=== PATIENT | female | born 1960 | race Caucasian/White ===

== ENCOUNTER 2022-09-17 15:15 | Outpatient (RCR) | payer BC, SELFPAY | END 2022-12-29 23:59 | disposition home or self-care (01) | LOC: CCIC 15:15 | PROVIDERS: PCP Physician Assistant; Visit Provider Internal Medicine Hematology & Oncology | DX: A04.8 Other specified bacterial intestinal infections (principal) | CPT/HCPCS: 99202; 99205; 99212; 99213; 99214 ==

== ENCOUNTER 2023-05-10 19:32 | Emergency (ER) | payer BC, SELFPAY ==
[2023-05-10] VITALS (17 sets, daily range): BP systolic 89–134; BP diastolic 55–79; PULSE 75–162; RESP 16–18; TEMP 36.4–37; O2SAT 90–98; BMI 28.3
--- NOTE | 2023-05-10 19:57 | CRLHL7_ITS ---
For Patients: As a result of the Century Cures Act, medical imaging exams and procedure reports are released immediately into your electronic medical record. You may view this report before your referring provider. If you have questions, please contact your health care provider. INDICATION: Chest pain.CHEST AND JAW PAIN TECHNIQUE: Chest 2 views. COMPARISON: June 2018. FINDINGS: Lungs: Normal lung volume. No consolidation. The tracheobronchial tree and hilar structures are unremarkable. Pleura: No pleural effusion or pneumothorax. Heart and Mediastinum: Normal heart size. The great vessels of the thorax are unremarkable. Bones: No acute displaced osseous process. IMPRESSION: No consolidation. Dictated by Bret Walsh MD @ 05/10/2023 9:36:17 PM (Electronically Signed)
[2023-05-10] MEDS: METOPROLOL TARTRATE 1 MG/ML inj 5 MG IVP (19:59)
[2023-05-10 20:16] LABS: Basophils Absolute Auto 0.02 K/uL (0.00-0.30); Basophils Percent Auto 0.3 % (0.0-3.0); Eosinophils Absolute Auto 0.19 K/uL (0.00-0.50); Eosinophils Percent Auto 2.5 % (0.0-7.0); Hematocrit 37.5 % (33.0-51.0); Hemoglobin* 12.3 gm/dL (12.0-16.0); Immature Granulocytes Abs Auto 0.01 K/uL (0.00-0.30); Immature Granulocytes Pct Auto 0.1 %; Lymphocytes Percent Auto 16.9 % (20-44); Mean Corpuscular HGB Conc 33 gm/dL (32-36); Mean Corpuscular Hemoglobin 31 pg (26-34); Mean Corpuscular Volume 94 fL (80-100); Monocytes Percent Auto 8.4 % (0.0-11.0); Neutrophils Percent Auto 71.8 % (42.0-72.0); Platelet Count* 242 K/uL (140-440); RDW Coefficient of Variation % 12.4 % (11.5-15.5); White Blood Count* 7.52 K/uL (4.50-11.00)
[2023-05-10 20:17] LABS: Albumin* 4.4 g/dL (3.3-5.0); Chloride* 106 mmol/L (96-114); Potassium* 3.2 mmol/L (3.6-5.1); Sodium* 140 mmol/L (135-149)
[2023-05-10 20:19] LABS: Creatinine* 0.7 mg/dL (0.5-1.5); Est. Creatinine Clearance* 48.87; Estimated Glomerular Filt Rate 98 ml/min; Slide Review Reflex No
[2023-05-10 20:20] LABS: Alanine Aminotransferase* 28 U/L (4-35); Alkaline Phosphatase* 93 U/L (40-150); Aspartate Amino Transferase* 34 U/L (12-35); Bilirubin Total* 0.6 mg/dL (0.1-1.5); Blood Urea Nitrogen* 26 mg/dL (7-30); Carbon Dioxide* 23 mmol/L (20-32); Glucose* 99 mg/dL (60-115); Total Protein* 7.3 g/dL (6.0-8.3)
[2023-05-10 20:21] LABS: Calcium* 9.2 mg/dL (8.4-10.6)
--- NOTE | 2023-05-10 20:42 | ED.GENADULT ---
HPI - General Adult General Date Seen: 05/10/23 Chief complaint: Chest Pain Stated complaint: Chest and jaw pain Time Seen by Provider: 05/10/23 19:32 Source: patient Mode of arrival: ambulatory Limitations: no limitations History of Present Illness HPI narrative: Patient is a 63-year-old female presenting emergency department for palpitations. She states she has a history of an irregular heartbeat in the past but does not know what it was but does state she knows it was not AFib but states it was fast. She states while she was working on her mother's house today she started to feel palpitations and worsening shortness of breath. She took her home metoprolol which she says helped his symptoms slightly but then there were not improving so decided come the emergency department. She states this all happened about 90 minutes prior to arrival to the emergency department. Denies abdominal pain, headache, vision changes. Does states she is feeling lightheaded but is feeling better from that standpoint while lying in bed. She does admit she has been under lot of stress lately. Denies fevers, chills, diarrhea constipation, vision changes. Related Data Home Medications Medication Instructions Recorded Confirmed albuterol sulfate 2.5 mg/3 mL 2.5 mg inhalation Q6-8H PRN 07/02/22 09/17/22 (0.083 %) solution for nebulization albuterol sulfate 90 mcg/actuation inhalation 07/02/22 09/17/22 aerosol inhaler atorvastatin 40 mg tablet 40 mg PO QPM 07/02/22 09/17/22 docusate sodium 50 mg capsule 50 mg PO QDAY 07/02/22 09/17/22 (Stool Softener) fexofenadine-pseudoephedrine ER tab PO 07/02/22 09/17/22 180 mg-240 mg tablet,ext.release 24 hr (Carmel-D 24 Hour) ipratropium 0.5 mg-albuterol 3 mg ml inhalation 07/02/22 09/17/22 (2.5 mg base)/3 mL nebulization soln naproxen sodium 220 mg capsule 660 mg PO QAM PRN 07/02/22 09/17/22 (Aleve) zafirlukast 20 mg tablet 40 mg PO QAM 07/02/22 09/17/22 aspirin 81 mg tablet,delayed 81 mg PO QDAY 09/02/22 09/17/22 release beclomethasone dipropionate 40 1 inh inhalation 09/02/22 09/17/22 mcg/actuation HFA breath activated aerosol (Qvar RediHaler) cyclosporine 0.05 % eye drops in a drp ophthalmic (eye) 09/02/22 09/17/22 dropperette ondansetron HCl 4 mg tablet mg PO 09/02/22 09/17/22 metoprolol 05/10/23 Previous Rx's Medication Instructions Recorded omeprazole 20 mg capsule,delayed 20 mg PO BID #60 caps 07/02/22 release ondansetron 4 mg disintegrating 4 mg PO Q8H #60 tabs 09/17/22 tablet Allergies Allergy/AdvReac Type Severity Reaction Status Date / Time fluticasone Allergy GI Verified 09/17/22 15:22 [From Advair Diskus] salmeterol Allergy GI Verified 09/17/22 15:22 [From Advair Diskus] Formoterol AdvReac Intermediate GI upset Uncoded 09/17/22 15:22 Mometasone AdvReac Intermediate GI upset Uncoded 09/17/22 15:22 advair AdvReac Mild Bloating Uncoded 07/02/22 09:09 Review of Systems Status of ROS: Reports: 10 or more systems reviewed and unremarkable except as noted in History and below PFSH [facility] Medical History (Updated 05/10/23 @ 23:15 by Jesus Lockett, ) COPD (chronic obstructive pulmonary disease) (05/28/13) ?J44.9 - Chronic obstructive pulmonary disease, unspecified (ICD-10) Asthma (05/28/13) ?J45.909 - Unspecified asthma, uncomplicated (ICD-10) Cervical cancer ?C53.9 - Malignant neoplasm of cervix uteri, unspecified (ICD-10) Surgical History (Updated 09/02/22 @ 15:15 by Leela Verdugo ~ RN, RN) H/O: hysterectomy ?Z90.710 - Acquired absence of both cervix and uterus (ICD-10) Social History Smoking Status: Former smoker Do you use any of these nicotine containing products: None How often do you have a drink containing alcohol: monthly or less AUDIT-C Alcohol total score: 1 Non-prescribed substance use: denies use Exam Narrative: Exam Narrative: Const: Well-nourished, Well-developed, in mild distress Eyes: PERRL, no conjunctival injection, and symmetrical lids ENMT: Atraumatic external nose and ears. Moist mucous membranes. Neck: Symmetric, trachea midline, No thyromegaly. CVS: Tachycardia, No murmurs or gallops. Peripheral pulses 2+ and equal in all extremities RESP: Unlabored respiratory effort. Clear to auscultation bilaterally. GI: Nontender/Nondistended, No rebound or guarding. MSK:Extremities w/o deformity, Normal Active ROM Skin: Warm, Dry. No rashes or lesions. Neuro: Normal Muscle tone, No focal neurological deficits. Psych: Awake, Alert, & Oriented x3. Appropriate mood and affect. Const: Vital Signs, click to edit/add: Vital Signs - 24 hr 05/10/23 19:43 05/10/23 19:55 05/10/23 20:02 Temperature 98.6 F Pulse Rate 160 H 158 H Pulse Rate [Pulse Oximeter] 162 H Respiratory Rate 18 18 18 Blood Pressure 133/55 L 89/68 L Blood Pressure [Ri ght Upper Arm] 126/79 Pulse Oximetry 94 94 94 Oxygen Delivery Me thod Room Air 05/10/23 20:03 05/10/23 20:17 05/10/23 20:32 Temperature Pulse Rate 158 H 90 86 Pulse Rate [Pulse Oximeter] Respiratory Rate 18 18 18 Blood Pressure 109/56 L 105/57 L 110/59 L Blood Pressure [Ri ght Upper Arm] Pulse Oximetry 93 90 94 Oxygen Delivery Me thod 05/10/23 20:47 05/10/23 21:02 05/10/23 21:17 Temperature 97.5 F L Pulse Rate 87 82 82 Pulse Rate [Pulse Oximeter] Respiratory Rate 16 18 18 Blood Pressure 113/63 121/67 109/76 Blood Pressure [Ri ght Upper Arm] Pulse Oximetry 95 95 95 Oxygen Delivery Me thod 05/10/23 21:31 05/10/23 21:47 05/10/23 22:02 Temperature Pulse Rate 80 78 77 Pulse Rate [Pulse Oximeter] Respiratory Rate 18 16 Blood Pressure 119/74 118/72 115/65 Blood Pressure [Ri ght Upper Arm] Pulse Oximetry 95 93 93 Oxygen Delivery Me thod 05/10/23 22:17 05/10/23 22:32 Temperature Pulse Rate 75 77 Pulse Rate [Pulse Oximeter] Respiratory Rate 16 18 Blood Pressure 106/69 123/78 Blood Pressure [Ri ght Upper Arm] Pulse Oximetry 95 95 Oxygen Delivery Me thod Course Vital Signs Vital signs: Initial Vital Signs Temperature 98.6 F 05/10/23 19:43 Temperature Source Temporal Artery Scan 05/10/23 19:43 Pulse Rate 162 H 05/10/23 19:43 Respiratory Rate 18 05/10/23 19:43 Blood Pressure 126/79 05/10/23 19:43 Blood Pressure Mean 94 05/10/23 19:43 Blood Pressure Position Supine 05/10/23 19:43 Pulse Oximetry 94 05/10/23 19:43 Oxygen Delivery Method Room Air 05/10/23 19:43 Vital Signs Temperature 98.6 F 05/10/23 19:43 Pulse Rate 162 H 05/10/23 19:43 Respiratory Rate 18 05/10/23 19:43 Blood Pressure 126/79 05/10/23 19:43 Pulse Oximetry 94 05/10/23 19:43 Oxygen Delivery Method Room Air 05/10/23 19:43 Temperature 97.5 F L 05/10/23 21:02 Pulse Rate 76 05/10/23 23:17 Respiratory Rate 18 05/10/23 23:17 Blood Pressure 134/67 05/10/23 23:17 Pulse Oximetry 93 05/10/23 23:17 Oxygen Delivery Method Room Air 05/10/23 19:43 Medical Decision Making MDM Narrative Medical decision making narrative: Patient 63-year-old female presented emergency department for palpitation and shortness of breath. Patient states symptoms started 1 hour prior to arrival to the emergency department. She says she has been under lot of stress but has had symptoms like this before and has been told she has and intermittently fast heart rate but states this is not AFib. She took a metoprolol which she said helped some for the palpitations. She states when the palpitations started shortness of breath got worse. She is having some mild chest pain. Cardiac workup was ordered on this patient. When she 1st arrived heart rate was 161 an EKG showed a sinus tachycardia, normal axis, normal intervals, there does appear to be depressions of the ST segment in the lateral leads likely from the sinus tachycardia. She is given 5 mg of Lopressor. Quickly after this her heart rate came down to the 90s and is now in the 70s. She states she feels much better at this time. Repeat EKG just prior to discharge shows a normal size rhythm with a rate of 75 beats per minute, normal intervals, normal axis, no ST or T-wave abnormalities. CBC returned showing no concerning abnormalities. CMP shows no concerning abnormalities. Troponin is within normal limits. We did do repeat troponin 3 hours later and it was still less than 0.01. We did replete her potassium of 3.2. This is unlikely because of his symptoms. Unclear why she became tachycardic with this relatively small amount of Lopressor to resolve her symptoms and she is feeling better at this time. Due to this I feel she is safe for discharge. I gave her strict return precautions and she is agreeable to this plan. I informed her she needs to have her primary care provider surgery up with Cardiology. She is agreeable to this also. Lab Data Labs: Lab Results 05/10/23 05/10/23 Range/Units 19:45 21:20 WBC 7.52 (4.50-11.00) K/uL RBC 4.00 (4.00-5.20) m/uL Hgb 12.3 (12.0-16.0) gm/dL Hct 37.5 (33.0-51.0) % MCV 94 (80-100) fL MCH 31 (26-34) pg MCHC 33 (32-36) gm/dL RDW Coeff of Kiana 12.4 (11.5-15.5) % Plt Count 242 (140-440) K/uL Neut % (Auto) 71.8 (42.0-72.0) % Lymph % (Auto) 16.9 L (20-44) % Barnes % (Auto) 8.4 (0.0-11.0) % Eos % (Auto) 2.5 (0.0-7.0) % Baso % (Auto) 0.3 (0.0-3.0) % Neut # (Auto) 5.40 (1.7-7.0) K/uL Lymph # (Auto) 1.30 (0.90-2.90) K/uL Barnes # (Auto) 0.60 (0.00-0.90) K/UL Eos # (Auto) 0.19 (0.00-0.50) K/uL Baso # (Auto) 0.02 (0.00-0.30) K/uL Abs Immat Gran (auto) 0.01 (0.00-0.30) K/uL Imm/Tot Granulo (auto) 0.1 % Sodium 140 (135-149) mmol/L Potassium 3.2 L (3.6-5.1) mmol/L Chloride 106 (96-114) mmol/L Carbon Dioxide 23 (20-32) mmol/L BUN 26 (7-30) mg/dL Creatinine 0.7 (0.5-1.5) mg/dL Estimated Creat Clear 48.87 Estimated GFR 98 ml/min Glucose 99 (60-115) mg/dL Calcium 9.2 (8.4-10.6) mg/dL Total Bilirubin 0.6 (0.1-1.5) mg/dL AST 34 (12-35) U/L ALT 28 (4-35) U/L Alkaline Phosphatase 93 (40-150) U/L Troponin I < 0.01 L < 0.01 L (0.01-0.04) ng/mL Total Protein 7.3 (6.0-8.3) g/dL Albumin 4.4 (3.3-5.0) g/dL Discharge Plan Discharge Clinical Impression: Sinus tachycardia Patient Disposition: Home, Self-Care Condition: Stable Instructions: Atrial Tachycardia (DC) Additional Instructions: Follow-up with the primary care provider and speaking about seen a occupational health specialist for your tachycardia. If symptoms worsen or return please return to the emergency department immediately. Prescriptions: No Action ondansetron 4 mg tablet,disintegrating 4 mg PO Q8H Qty: 60 0RF albuterol sulfate 90 mcg/actuation HFA aerosol inhaler inhalation Patient Comments: INHALE ONE OR TWO PUFFS BY MOUTH EVERY FOUR HOURS NEEDED FOR SHORTNESS OF BREATH atorvastatin 40 mg tablet 40 mg PO QPM Patient Comments: TAKE ONE TABLET BY MOUTH ONE TIME DAILY AT BEDTIME zafirlukast 20 mg tablet 40 mg PO QAM Patient Comments: TAKE ONE TABLET BY MOUTH TWICE A DAY WITH MEALS albuterol sulfate 2.5 mg /3 mL (0.083 %) solution for nebulization 2.5 mg inhalation Q6-8H PRN Patient Comments: Inhale 3 mL (2.5 mg) via a nebulizer every 4 hours if needed for Shortness of Breath or Wheezing fexofenadine-pseudoephedrine [Carmel-D 24 Hour] 180-240 mg tablet extended release 24 hr PO Patient Comments: TAKE ONE TABLET BY MOUTH ONE TIME DAILY ipratropium-albuterol 0.5 mg-3 mg(2.5 mg base)/3 mL solution for nebulization inhalation Patient Comments: Inhale 3 mL via a nebulizer every 6 hours if needed. USE FIRST CHOICE FOR SHORTNESS OF BREATH. naproxen sodium [Aleve] 220 mg capsule 660 mg PO QAM PRN Stool Softener 50 mg capsule 50 mg PO QDAY omeprazole 20 mg capsule,delayed release(DR/EC) 20 mg PO BID Qty: 60 0RF aspirin 81 mg tablet,delayed release (DR/EC) 81 mg PO QDAY Qvar RediHaler 40 mcg/actuation HFA aerosol breath activated 1 inh inhalation Patient Comments: INHALE 1 PUFF BY MOUTH TWO TIMES DAILY. ondansetron HCl 4 mg tablet PO Patient Comments: Take 1 tablet by mouth one hour before daily treatment and every 8 hours as needed for nausea; may increase to two tablets before treatment cyclosporine 0.05 % dropperette ophthalmic (eye) Patient Comments: instill 1 drop into both eyes twice daily. metoprolol Follow Up/Referrals: Abril Gloria DO [Primary Care Provider] - Stand Alone Forms: [employer] Info Instructions
[2023-05-10 20:43] LABS: Troponin I* < 0.01 ng/mL (0.01-0.04)
[2023-05-10 22:55] LABS: Troponin I* < 0.01 ng/mL (0.01-0.04)
[2023-05-10] MEDS: POTASSIUM CHLORIDE 10 MEQ CAPSULE ER 40 MEQ PO (23:08)
== END 2023-05-10 23:38 | disposition home or self-care (01) ==
PROVIDERS: Emergency Provider Student in an Organized Health Care Education/Training Program; PCP Family Medicine
DX: R00.0 Tachycardia, unspecified (principal)
CPT/HCPCS: 36415; 71046; 80053; 84484; 85025; 93005; 96374; 99283; 99284; 99285; A9270

== ENCOUNTER 2023-09-18 08:54 | Outpatient (CLI) | payer BC, SELFPAY ==
--- NOTE | 2023-09-18 09:15 | CRLHL7_ITS ---
For Patients: As a result of the Century Cures Act, medical imaging exams and procedure reports are released immediately into your electronic medical record. You may view this report before your referring provider. If you have questions, please contact your health care provider. INDICATION: Neck pain. Cervicogenic headaches. COMPARISON: None available. TECHNIQUE: Sagittal T1, T2, and STIR sequences. Axial T2/gradient sequences. FINDINGS: Straightening of the normal cervical lordosis which may be secondary to muscle spasm patient positioning. Degenerative grade 1 anterolisthesis is C3 and C4 measures approximately 3 mm. Trace degenerative retrolisthesis of C4 on C5 and C5 on C6. Normal facet alignment. No fractures. No vertebral body loss of height. Normal cord signal. No intradural mass or lesion. C1-2: No spinal canal narrowing. C2-3: No narrowing of spinal canal. Mild narrowing of the left neural foramen. No narrowing of the right neural foramen. C3-4: Grade 1 anterolisthesis. Disc degeneration. Posterior disc bulging disc osteophyte complex. Mild narrowing of spinal canal. Mild right and moderate left neural foraminal narrowing. C4-5: Disc generation and posterior disc bulging disc osteophyte complex. Mild narrowing of spinal canal. Moderate right and mild left neural foraminal narrowing. C5-6: Disc generation broad-based disc osteophyte complex. Mild narrowing of the spinal canal. Moderate narrowing of bilateral foramina. C6-7: No spinal canal or neural foraminal narrowing. C7-T1: No spinal canal or neural foraminal narrowing. No spinal canal or neural foraminal narrowing in the visualized upper thoracic spine. IMPRESSION: 1. Degenerative grade 1 anterolisthesis of C3 on C4. Trace retrolisthesis of C4 on C5 and C5 on C6. 2. Otherwise, normal facet alignment. No fractures. 3. Normal cord signal. No intradural mass or vision. 4. At C3-4, mild right and moderate left neural foraminal narrowing. 5. At C4-5, moderate right and mild left neural foraminal narrowing. 6. At C5-6, moderate narrowing of the bilateral neural foramina Dictated by Berhane Dowell MD @ 09/19/2023 10:26:54 AM (Electronically Signed)
== END 2023-09-18 08:55 | disposition home or self-care (01) ==
PROVIDERS: PCP Family Medicine; Visit Provider Family Medicine
DX: M54.2 Cervicalgia (principal); M50.21 Other cervical disc displacement, high cervical region; M50.222 Other cervical disc displacement at C5-C6 level; G44.86 Cervicogenic headache; M43.12 Spondylolisthesis, cervical region; M50.30 Other cervical disc degeneration, unspecified cervical region
CPT/HCPCS: 72141

== ENCOUNTER 2023-09-29 17:12 | Emergency (ER) | payer BC, SELFPAY ==
[2023-09-29] VITALS (10 sets, daily range): BP systolic 97–114; BP diastolic 44–63; PULSE 78–101; RESP 20; TEMP 36.3; O2SAT 93–96; BMI 29.2
--- NOTE | 2023-09-29 18:12 | ED_ITS ---
HPI - General Adult General Chief complaint: Arrhythmia/Palpitations Stated complaint: elevated heart rate Time Seen by Provider: 09/29/23 17:50 Source: patient Mode of arrival: ambulatory Limitations: no limitations History of Present Illness HPI narrative: 63-year-old female presenting today with concerns of palpitations. She states that about an hour ago she was having dinner when her heart began racing. She felt short of breath, central substernal chest pain and pain going into her left jaw. She states that she then took 25 mg of metoprolol and now she feels better. Patient states that this has occurred in the past once this summer. She presented here in what appeared to be sinus tachycardia that resolved with metoprolol. Unfortunately, she has not followed up with her physician or Cardiology since then. She denies ever having heart monitor. She denies intermittent palpitations since the last episode. Denies any recent illness, has been eating and drinking well. Normal sleep. She denies any recent alcohol use. She does not smoke. Related Data Home Medications Medication Instructions Recorded Confirmed albuterol sulfate 2.5 mg/3 mL 2.5 mg inhalation Q6-8H PRN 07/02/22 09/17/22 (0.083 %) solution for nebulization albuterol sulfate 90 mcg/actuation inhalation 07/02/22 09/17/22 aerosol inhaler atorvastatin 40 mg tablet 40 mg PO QPM 07/02/22 09/17/22 docusate sodium 50 mg capsule 50 mg PO QDAY 07/02/22 09/17/22 (Stool Softener) fexofenadine-pseudoephedrine ER tab PO 07/02/22 09/17/22 180 mg-240 mg tablet,ext.release 24 hr (Carmel-D 24 Hour) ipratropium 0.5 mg-albuterol 3 mg ml inhalation 07/02/22 09/17/22 (2.5 mg base)/3 mL nebulization soln naproxen sodium 220 mg capsule 660 mg PO QAM PRN 07/02/22 09/17/22 (Aleve) zafirlukast 20 mg tablet 40 mg PO QAM 07/02/22 09/17/22 aspirin 81 mg tablet,delayed 81 mg PO QDAY 09/02/22 09/17/22 release beclomethasone dipropionate 40 1 inh inhalation 09/02/22 09/17/22 mcg/actuation HFA breath activated aerosol (Qvar RediHaler) cyclosporine 0.05 % eye drops in a drp ophthalmic (eye) 09/02/22 09/17/22 dropperette ondansetron HCl 4 mg tablet mg PO 09/02/22 09/17/22 metoprolol 05/10/23 Previous Rx's Medication Instructions Recorded omeprazole 20 mg capsule,delayed 20 mg PO BID #60 caps 07/02/22 release ondansetron 4 mg disintegrating 4 mg PO Q8H #60 tabs 09/17/22 tablet Allergies Allergy/AdvReac Type Severity Reaction Status Date / Time fluticasone Allergy GI Verified 09/17/22 15:22 [From Advair Diskus] salmeterol Allergy GI Verified 09/17/22 15:22 [From Advair Diskus] Formoterol AdvReac Intermediate GI upset Uncoded 09/17/22 15:22 Mometasone AdvReac Intermediate GI upset Uncoded 09/17/22 15:22 advair AdvReac Mild Bloating Uncoded 07/02/22 09:09 Review of Systems Status of ROS: Reports: 10 or more systems reviewed and unremarkable except as noted in History and below [facility] Medical History COPD (chronic obstructive pulmonary disease) (05/28/13) ?J44.9 - Chronic obstructive pulmonary disease, unspecified (ICD-10) Asthma (05/28/13) ?J45.909 - Unspecified asthma, uncomplicated (ICD-10) Cervical cancer ?C53.9 - Malignant neoplasm of cervix uteri, unspecified (ICD-10) Surgical History H/O: hysterectomy ?Z90.710 - Acquired absence of both cervix and uterus (ICD-10) Social History Smoking Status: Former smoker Do you use any of these nicotine containing products: None How often do you have a drink containing alcohol: monthly or less AUDIT-C Alcohol total score: 1 Non-prescribed substance use: denies use Exam Narrative: Exam Narrative: Well-nourished well-developed patient in no acute distress. Alert and oriented. Answers questions appropriately. Mood and affect are appropriate. Thoughts are goal oriented and rational. No tangential or magical thinking noted. Patient speaks in full sentences without needing to catch Her breath. pulse is 89. HEENT: Normocephalic atraumatic. Pupils are equally round reactive to light. Extraocular muscles are intact. Conjunctivae are moist without any icterus noted. Moist mucous membranes. Posterior pharynx is normal. Neck is soft without any lymphadenopathy or thyromegaly. No masses are appreciated. Cardiovascular: Heart is regular rate and rhythm S1 and S2 are present without any murmurs. Lungs: Clear to auscultation bilaterally no wheezes rhonchi or rales are appreciated. Patient takes deep breaths without any discomfort. Abdomen: Soft and nontender nondistended with normal bowel sounds. Extremities: Bilateral lower extremities are without edema. Normal DP and PT pulses. Skin: Well perfused without any obvious rashes. Const: Vital Signs, click to edit/add: Vital Signs - 24 hr 09/29/23 17:52 09/29/23 18:12 09/29/23 18:15 Temperature 97.3 F L Pulse Rate 85 Pulse Rate [Pulse Oximeter] 101 H Pulse Rate [orthos tatic lying] Pulse Rate [orthos tatic sitting] Pulse Rate [orthos tatic standing] Respiratory Rate 20 Blood Pressure Blood Pressure [Ri ght Upper Arm] 113/63 Blood Pressure [or thostatic lying] Blood Pressure [or thostatic sitting] Blood Pressure [or thostatic standing ] Pulse Oximetry 94 93 95 [facility] 09/29/23 18:15 09/29/23 18:30 09/29/23 18:31 Temperature Pulse Rate 84 81 82 Pulse Rate [Pulse Oximeter] Pulse Rate [orthos tatic lying] Pulse Rate [orthos tatic sitting] Pulse Rate [orthos tatic standing] Respiratory Rate Blood Pressure 114/62 Blood Pressure [Ri ght Upper Arm] Blood Pressure [or thostatic lying] Blood Pressure [or thostatic sitting] Blood Pressure [or thostatic standing ] Pulse Oximetry 94 94 95 Oxygen Delivery Me thod 09/29/23 18:45 09/29/23 19:00 09/29/23 19:02 Temperature Pulse Rate 79 78 81 Pulse Rate [Pulse Oximeter] Pulse Rate [orthos tatic lying] Pulse Rate [orthos tatic sitting] Pulse Rate [orthos tatic standing] Respiratory Rate Blood Pressure Blood Pressure [Ri ght Upper Arm] Blood Pressure [or thostatic lying] Blood Pressure [or thostatic sitting] Blood Pressure [or thostatic standing ] Pulse Oximetry 96 94 96 Oxygen Delivery Ne thod 09/29/23 19:10 09/29/23 19:45 Temperature Pulse Rate 81 Pulse Rate [Pulse Oximeter] Pulse Rate [orthos tatic lying] 83 Pulse Rate [orthos tatic sitting] 85 Pulse Rate [orthos tatic standing] 82 Respiratory Rate Blood Pressure 102/52 L Blood Pressure [Ri ght Upper Arm] Blood Pressure [or thostatic lying] 97/44 L Blood Pressure [or thostatic sitting] 113/58 L Blood Pressure [or thostatic standing ] 105/60 Pulse Oximetry 94 Oxygen Delivery Ne thod Course Course ED Course: EKG, read by me, shows normal sinus rhythm with a pulse of 91. Biatrial enlargement noted. Labs showed mild hypokalemia which was replaced with 20 mEq orally today. She also received a L of normal saline. Blood pressures were in the upper 90s systolic, patient was asymptomatic. States that her blood pressures are generally in the 1 teens to 120s systolic. Pulse remained in the 80s and 90s. Normal troponin, normal TSH. Patient remained asymptomatic while in the ED. Orthostatics were checked, unremarkable. Patient had no symptoms of dizziness, shortness of breath or chest pain when standing or walking. Vital Signs Vital signs: Initial Vital Signs Temperature 97.3 F L 09/29/23 17:52 Temperature Source Temporal Artery Scan 09/29/23 17:52 Pulse Rate 101 H 09/29/23 17:52 Respiratory Rate 20 09/29/23 17:52 Blood Pressure 113/63 09/29/23 17:52 Blood Pressure Mean 79 09/29/23 17:52 Blood Pressure Position Supine 09/29/23 17:52 Pulse Oximetry 94 09/29/23 17:52 Oxygen Delivery Method Room Air 09/29/23 17:52 Vital Signs Temperature 97.3 F L 09/29/23 17:52 Pulse Rate 101 H 09/29/23 17:52 Respiratory Rate 20 09/29/23 17:52 Blood Pressure 113/63 09/29/23 17:52 Pulse Oximetry 94 09/29/23 17:52 Oxygen Delivery Method Room Air 09/29/23 17:52 Temperature 97.3 F L 09/29/23 17:52 Pulse Rate 83 09/29/23 19:45 Respiratory Rate 20 09/29/23 17:52 Blood Pressure 97/44 L 09/29/23 19:45 Pulse Oximetry 94 09/29/23 19:10 Oxygen Delivery Method Room Air 09/29/23 17:52 Medications Administered Medications: Discontinued Medications Generic Name Dose Route Start Last Admin Trade Name Maria Ines PRN Reason Stop Dose Admin Sodium Chloride 1,000 mls @ 1,000 mls/hr 09/29/23 18:15 09/29/23 19:42 0.9 % Sodium Chloride 1000 Ml IV 09/29/23 19:14 Infused .Q1H KARI Infusion Potassium Chloride 20 meq 09/29/23 18:51 09/29/23 19:11 Potassium Chloride 10 Meq Capsule Er PO 09/29/23 18:52 20 meq ONCE ONE Administration Medical Decision Making MDM Narrative Medical decision making narrative: 63-year-old female with palpitations. Last time she was here it appears that patient was in sinus tachycardia. She states that she has not had a heart monitor or a appointment with cardiology since then. At this time I do recommend cardiology follow-up. She does have metoprolol to take at home in the event she feels her heartbeat increase again. Given that the last time it occurred was this last summer I do not think that a 24 hour Holter out of the ER will be that useful, unless these episodes begin to occur more frequently. Medical Records Medical records reviewed: Yes I reviewed the patient's medical records Lab Data Lab results reviewed: Yes I reviewed the patient's lab results Labs: Lab Results 09/29/23 09/29/23 Range/Units 18:05 18:09 WBC 5.54 (4.50-11.00) K/uL RBC 4.34 (4.00-5.20) m/uL Hgb 12.8 (12.0-16.0) gm/dL Hct 39.3 (33.0-51.0) % MCV 91 (80-100) fL MCH 30 (26-34) pg MCHC 33 (32-36) gm/dL RDW Coeff of Kiana 13.6 (11.5-15.5) % Plt Count 206 (140-440) K/uL Neut % (Auto) 75.9 H (42.0-72.0) % Lymph % (Auto) 13.5 L (20-44) % [place] % (Auto) 7.9 (0.0-11.0) % Eos % (Auto) 2.5 (0.0-7.0) % Baso % (Auto) 0.2 (0.0-3.0) % Neut # (Auto) 4.20 (1.7-7.0) K/uL Lymph # (Auto) 0.70 L (0.90-2.90) K/uL [place] # (Auto) 0.40 (0.00-0.90) K/UL Eos # (Auto) 0.14 (0.00-0.50) K/uL Baso # (Auto) 0.01 (0.00-0.30) K/uL Abs Immat Gran (auto) 0.00 (0.00-0.30) K/uL Imm/Tot Granulo (auto) 0.0 % Sodium 139 (135-149) mmol/L Potassium 3.3 L (3.6-5.1) mmol/L Chloride 110 (96-114) mmol/L Carbon Dioxide 19 L (20-32) mmol/L Anion Gap 10 (7-15) mEq/L BUN 27 (7-30) mg/dL Creatinine 0.6 (0.5-1.5) mg/dL Estimated Creat Clear 48.87 Estimated GFR 102 ml/min Glucose 113 (60-115) mg/dL Calcium 9.3 (8.4-10.6) mg/dL Troponin I < 0.01 L (0.01-0.04) ng/mL TSH 0.975 (0.270-4.20) uIU/mL POC Troponin I 0.00 L (0.01-0.04) ng/ml ECG Data Attestation: I personally reviewed and interpreted this ECG as follows: Discharge Plan Discharge Clinical Impression: Palpitations Patient Disposition: Home, Self-Care Condition: Improved Additional Instructions: You do need to follow-up with a dentist private practice. If you need a referral, speak to your primary care provider to set this up. If this occurs again you should take an extra dose of metoprolol as you did today. If these episodes occur more often prior to your cardiology appointment, you should return to the ER. Prescriptions: No Action ondansetron 4 mg tablet,disintegrating 4 mg PO Q8H Qty: 60 0RF albuterol sulfate 90 mcg/actuation HFA aerosol inhaler inhalation Patient Comments: INHALE ONE OR TWO PUFFS BY MOUTH EVERY FOUR HOURS NEEDED FOR SHORTNESS OF BREATH atorvastatin 40 mg tablet 40 mg PO QPM Patient Comments: TAKE ONE TABLET BY MOUTH ONE TIME DAILY AT BEDTIME zafirlukast 20 mg tablet 40 mg PO QAM Patient Comments: TAKE ONE TABLET BY MOUTH TWICE A DAY WITH MEALS albuterol sulfate 2.5 mg /3 mL (0.083 %) solution for nebulization 2.5 mg inhalation Q6-8H PRN Patient Comments: Inhale 3 mL (2.5 mg) via a nebulizer every 4 hours if needed for Shortness of Breath or Wheezing fexofenadine-pseudoephedrine [Carmel-D 24 Hour] 180-240 mg tablet extended release 24 hr PO Patient Comments: TAKE ONE TABLET BY MOUTH ONE TIME DAILY ipratropium-albuterol 0.5 mg-3 mg(2.5 mg base)/3 mL solution for nebulization inhalation Patient Comments: Inhale 3 mL via a nebulizer every 6 hours if needed. USE FIRST CHOICE FOR SHORTNESS OF BREATH. naproxen sodium [Aleve] 220 mg capsule 660 mg PO QAM PRN Stool Softener 50 mg capsule 50 mg PO QDAY omeprazole 20 mg capsule,delayed release(DR/EC) 20 mg PO BID Qty: 60 0RF aspirin 81 mg tablet,delayed release (DR/EC) 81 mg PO QDAY Qvar RediHaler 40 mcg/actuation HFA aerosol breath activated 1 inh inhalation Patient Comments: INHALE 1 PUFF BY MOUTH TWO TIMES DAILY. ondansetron HCl 4 mg tablet PO Patient Comments: Take 1 tablet by mouth one hour before daily treatment and every 8 hours as needed for nausea; may increase to two tablets before treatment cyclosporine 0.05 % dropperette ophthalmic (eye) Patient Comments: instill 1 drop into both eyes twice daily. metoprolol Follow Up/Referrals: Abril Gloria DO [Primary Care Provider] - Stand Alone Forms: [employer] Info Instructions
[2023-09-29 18:17] LABS: Basophils Absolute Auto 0.01 K/uL (0.00-0.30); Basophils Percent Auto 0.2 % (0.0-3.0); Eosinophils Absolute Auto 0.14 K/uL (0.00-0.50); Eosinophils Percent Auto 2.5 % (0.0-7.0); Hematocrit 39.3 % (33.0-51.0); Hemoglobin* 12.8 gm/dL (12.0-16.0); Lymphocytes Percent Auto 13.5 % (20-44); Mean Corpuscular HGB Conc 33 gm/dL (32-36); Mean Corpuscular Hemoglobin 30 pg (26-34); Mean Corpuscular Volume 91 fL (80-100); Monocytes Percent Auto 7.9 % (0.0-11.0); Neutrophils Percent Auto 75.9 % (42.0-72.0); Platelet Count* 206 K/uL (140-440); RDW Coefficient of Variation % 13.6 % (11.5-15.5); Red Blood Count 4.34 m/uL (4.00-5.20); White Blood Count* 5.54 K/uL (4.50-11.00)
[2023-09-29 18:21] LABS: Slide Review Reflex No
[2023-09-29 18:30] LABS: Chloride* 110 mmol/L (96-114)
[2023-09-29 18:31] LABS: Potassium* 3.3 mmol/L (3.6-5.1); Sodium* 139 mmol/L (135-149)
[2023-09-29 18:33] LABS: Anion Gap 10 mEq/L (7-15); Carbon Dioxide* 19 mmol/L (20-32); Creatinine* 0.6 mg/dL (0.5-1.5); Est. Creatinine Clearance* 48.87; Estimated Glomerular Filt Rate 102 ml/min
[2023-09-29] MEDS: 0.9 % SODIUM CHLORIDE 1000 ml 1,000 ML IV (18:33)
[2023-09-29 18:34] LABS: Blood Urea Nitrogen* 27 mg/dL (7-30); Calcium* 9.3 mg/dL (8.4-10.6); Glucose* 113 mg/dL (60-115)
[2023-09-29 18:50] LABS: Troponin I* < 0.01 ng/mL (0.01-0.04)
[2023-09-29] MEDS: POTASSIUM CHLORIDE 10 MEQ CAPSULE ER 20 MEQ PO (19:11)
[2023-09-29 19:22] LABS: Thyroid Stimulating Hormone* 0.975 uIU/mL (0.270-4.20)
== END 2023-09-29 20:00 | disposition home or self-care (01) ==
PROVIDERS: Emergency Provider Family Medicine; PCP Family Medicine
DX: R00.2 Palpitations (principal)
CPT/HCPCS: 36415; 80048; 84443; 84484; 85025; 93005; 94761; 99284; A9270; J7030

== ENCOUNTER 2023-12-19 08:45 | Outpatient (RCR) | payer BC, SELFPAY | END 2023-12-19 11:37 | disposition home or self-care (01) | PROVIDERS: PCP Family Medicine; Visit Provider Family Medicine | DX: M50.30 Other cervical disc degeneration, unspecified cervical region (principal); M43.12 Spondylolisthesis, cervical region; M54.12 Radiculopathy, cervical region; G44.86 Cervicogenic headache; Z74.09 Other reduced mobility; R29.898 Other symptoms and signs involving the musculoskeletal system; Z51.89 Encounter for other specified aftercare | CPT/HCPCS: 97012; 97110; 97140; 97161 ==